=== PATIENT | male | born 1965 | race Caucasian/White ===

== ENCOUNTER 2021-03-19 10:42 | Emergency (ER) | payer OTHER ==
[~2021-03-19] VITALS: Ht 182.9 cm; Wt 99.8 kg
[2021-03-19 12:10] VITALS: BP 140/95
== END 2021-03-19 12:13 | disposition left against medical advice (07) ==
LOC: M.ERS 10:42
DX: M54.5 Low back pain (principal); F15.90 Other stimulant use, unspecified, uncomplicated; E11.9 Type 2 diabetes mellitus without complications; Z59.0 Homelessness